=== PATIENT | male | born 1970 | race Caucasian/White ===

== ENCOUNTER 2025-02-28 19:41 | Emergency (ER) | payer OTHER, SELFPAY ==
[2025-02-28] VITALS (22 sets, daily range): BP systolic 108–169; BP diastolic 60–98; PULSE 75–150; RESP 13–28; TEMP 36.9; O2SAT 92–98; BMI 27.2
--- NOTE | 2025-02-28 19:51 | DI.RAD.S_ITS ---
PROCEDURE: XR CHEST 1V INDICATIONS: Chest Pain TECHNIQUE: One view of the chest was acquired. COMPARISON: None. FINDINGS: Surgical changes and devices: Median sternotomy wires and surgical clips are seen. Lungs and pleura: There is small to moderate left pleural effusion and left basilar small infiltrate/atelectasis. No pneumothorax. Pulmonary vascular congestion is seen. No definite focal infiltrate. Mediastinum: Mediastinal contours appear normal. Heart size is enlarged. Bones and chest wall: No suspicious bony lesions. Overlying soft tissues appear unremarkable. IMPRESSION: Finding is concerning for CHF. Small to moderate left pleural effusion with left basilar atelectasis/small infiltrates. No pneumothorax. Dictated by: Parker De Luna M.D. on 02/28/2025 at 20:27 Approved by: Parker De Luna M.D. on 02/28/2025 at 20:28
--- NOTE | 2025-02-28 19:54 | EKG_ITS ---
[id number] [address] Test Date: 2025-02-28 Pat Name: Murray Tinoco Department: Room: Gender: Male Vp [employer]ent Management: : 1970 Requested By: Order Number: [id number] Reading MD: Charlie Ward Measurements Intervals [place] Rate: 147 P: [place]: QRS: -40 QRSD: 176 T: 39 QT: 316 QTc: 494 Interpretive Statements Critical Test Result: High HR Atrial fibrillation with rapid ventricular response with premature ventricular or aberrantly conducted complexes Left axis deviation Right bundle branch block Electronically Signed On 03-01-2025 7:24:43 PDT by Charlie Ward
[2025-02-28 20:10] LABS: Add Manual Diff / Slide Review NO; Hematocrit 45.7 % (41-53); Hemoglobin 15.8 g/dL (13.5-17.5); Lymphocytes Absolute Auto 2100 /uL (1100-4500); Mean Corpuscular HGB Conc 34.5 % (30-36); Mean Corpuscular Hemoglobin 34.7 PG (26-34); Mean Corpuscular Volume 100.7 fL (80-100); Platelet Count 194 X10^3/uL (150-400)
[2025-02-28 20:11] LABS: INR 1.1 (0.9-1.3); Prothrombin Time 12.3 SECONDS (9.4-12.5)
[2025-02-28 20:14] LABS: PTT Partial Thromboplastin Tim 41 SECONDS (25.1-36.5)
[2025-02-28 20:17] LABS: Alanine Aminotransferase 56 IU/L (<50); Albumin 5.0 g/dL (3.5-5.0); Albumin Globulin Ratio 1.6 (1.0-2.8); Alkaline Phosphatase 76 U/L (38-126); Blood Urea Nitrogen 7 mg/dL (9-20); Calcium 9.8 mg/dL (8.4-10.2); Carbon Dioxide 21 mmol/L (22-32); Chloride 102 mmol/L (98-107); Creatine Kinase 96 U/L (55-170); Estimated Glomerular Filt Rate > 60 mL/min (>60); Globulin 3.1 g/dL (1.7-4.1); Glucose 116 mg/dL (70-99); HEMOLYSIS 15 (0-50); Lipase 55 U/L (23-300); Magnesium 1.8 mg/dL (1.6-2.3); Potassium 3.8 mmol/L (3.4-5.1); Sodium 138 mmol/L (137-145); Total Protein 8.1 g/dL (6.3-8.2)
[2025-02-28 20:28] LABS: NT-proBNP (BNP-Adult 18+) 545 pg/mL (<125); Troponin I 0.033 ng/mL (0.01-0.034)
--- NOTE | 2025-02-28 20:30 | ED_ITS ---
HPI - Arrhythmia/Palpitations General Chief Complaint: Arrhythmia/Palpitations Stated Complaint: cardiac arrhythmia and SOB Time Seen by Provider: 02/28/25 20:30 Source: patient Mode of arrival: Ambulatory History of Present Illness HPI narrative: 54-year-old gentleman born with tetralogy of Fallot has had subsequent multiple cardiac surgeries all when he was younger his most recent cardiac surgery and catheterization was in the mid 80s, he is on amlodipine for hypertension. Over the last 4-5 days he has been having increasing fatigue increasing lower extremity edema exertional dyspnea. Today around 10 30 he developed increasing shortness a breath, noted that his heart was rapid and irregular and developing some mild chest pain. He and his live on [address] they came in for further evaluation. No recent fever cough or chills. No abdominal pain, nausea vomiting or diarrhea. Related Data Allergies Allergy/AdvReac Type Severity Reaction Status Date / Time No Known Drug Allergies Allergy Verified 02/28/25 19:47 Review of Systems Review of Systems Narrative: Pertinent positive and negative findings as per HPI Patient History Medical History (Updated 02/28/25 @ 23:25 by Anjelica Escalona MD) Hypertension Tetralogy of Fallot Social History Smoking Status: Unknown if ever smoked Smoking Status: Unknown if ever smoked Exam Initial Vital Signs Initial Vital Signs: Vital Signs Temperature 98.5 F 02/28/25 19:47 Pulse Rate 75 02/28/25 19:47 Respiratory Rate 14 02/28/25 19:47 Blood Pressure 142/88 H 02/28/25 19:47 Pulse Oximetry 95 02/28/25 19:47 Oxygen Delivery Method Room Air 02/28/25 19:47 General: Somewhat fatigued with deep circles under his eyes somewhat pale. Able to speak in complete sentences HEENT: Moist mucous membranes, normal sclera with reactive pupils, Neck: No JVD, supple Respiratory: Lungs are clear to auscultation, no wheezing no rales no rhonchi. Full and symmetrical air movement Cardiac: Tachycardic and irregular, 3/6 systolic murmur Abdomen: Soft, nontender, no rebound or guarding, no flank pain Skin: Slightly pale, no rashes Neurologic: Grossly neurologically intact with no obvious asymmetries or abnormalities Extremities: No trauma, 1+ bilateral lower extremity edema Psych: Cooperative, appropriate insight and affect Course Orders Ordered: Discontinued Medications Aspirin (Aspirin 81 Mg Chew Tab) 324 mg PO NOW ONE Stop: 02/28/25 19:52 Last Admin: 02/28/25 20:32 Dose: 324 mg Documented By: ADEOLA Diltiazem HCl (Diltiazem 25 Mg/5 Ml Sdv) 10 mg IV NOW ONE Stop: 02/28/25 20:52 Last Admin: 02/28/25 21:02 Dose: 10 mg Documented By: ADEOLA Furosemide (Furosemide 40 Mg/4 Ml Vial) 20 mg IV NOW ONE Stop: 02/28/25 23:27 Last Admin: 02/28/25 23:34 Dose: 20 mg Documented By: MINDA Diltiazem HCl 125 mg/ Sodium (Chloride) 125 mls @ 5 mls/hr IV TITRATE [facility]; Protocol Last Titration: 03/01/25 01:42 Dose: Infused Documented By: Titration: 02/28/25 23:39 Dose: 20 mg/hr, 20 mls/hr Documented By: Titration: 02/28/25 22:03 Dose: 15 mg/hr, 15 mls/hr Documented By: Titration: 02/28/25 21:44 Dose: 10 mg/hr, 10 mls/hr Documented By: Admin: 02/28/25 21:13 Dose: 5 mg/hr, 5 mls/hr Documented By: ADEOLA Vital Signs Vital signs: Vital Signs - 8 hr 02/28/25 19:47 02/28/25 20:43 02/28/25 20:49 Temperature 98.5 F Pulse Rate 75 144 H Respiratory Rate 14 15 Blood Pressure 142/88 H 156/98 H Pulse Oximetry 95 98 Oxygen Delivery Method Room Air 02/28/25 20:49 02/28/25 21:00 02/28/25 21:00 Temperature Pulse Rate 145 H Respiratory Rate 17 Blood Pressure 165/87 H 122/80 Pulse Oximetry 96 Oxygen Delivery Method 02/28/25 21:02 02/28/25 21:10 02/28/25 21:10 Temperature Pulse Rate 150 H 137 H Respiratory Rate 15 Blood Pressure 122/80 138/69 Pulse Oximetry 93 Oxygen Delivery Method 02/28/25 21:13 02/28/25 21:15 02/28/25 21:15 Temperature Pulse Rate 135 H 132 H Respiratory Rate 22 Blood Pressure 138/69 119/69 Pulse Oximetry 96 Oxygen Delivery Method 02/28/25 21:20 02/28/25 21:20 02/28/25 21:30 Temperature Pulse Rate 137 H 115 H Respiratory Rate 13 Blood Pressure 147/79 H Pulse Oximetry 94 96 Oxygen Delivery Method 02/28/25 21:30 02/28/25 21:40 02/28/25 21:40 Temperature Pulse Rate 134 H Respiratory Rate 21 Blood Pressure 149/69 H 108/60 Pulse Oximetry 95 Oxygen Delivery Method 02/28/25 21:50 02/28/25 21:50 02/28/25 22:00 Temperature Pulse Rate 142 H 133 H Respiratory Rate 28 H 26 H Blood Pressure 117/69 Pulse Oximetry 95 95 Oxygen Delivery Method 02/28/25 22:01 02/28/25 22:01 02/28/25 22:10 Temperature Pulse Rate 137 H 135 H Respiratory Rate 21 25 H Blood Pressure 146/75 H Pulse Oximetry 94 92 Oxygen Delivery Method 02/28/25 22:10 02/28/25 22:20 02/28/25 22:20 Temperature Pulse Rate 127 H Respiratory Rate 21 Blood Pressure 124/80 115/77 Pulse Oximetry 96 Oxygen Delivery Method 02/28/25 22:30 02/28/25 22:38 02/28/25 22:38 Temperature Pulse Rate 144 H 133 H Respiratory Rate 15 22 Blood Pressure 152/81 H Pulse Oximetry 93 96 Oxygen Delivery Method 02/28/25 22:45 02/28/25 22:45 02/28/25 23:00 Temperature Pulse Rate 123 H Respiratory Rate 23 Blood Pressure 149/66 H 124/68 Pulse Oximetry 94 Oxygen Delivery Method 02/28/25 23:00 Temperature Pulse Rate 121 H Respiratory Rate 24 Blood Pressure Pulse Oximetry 94 Oxygen Delivery Method MDM - Arrhythmia/Palpitations Lab Data 02/28/25 19:58 02/28/25 19:58 Labs: Lab Results 02/28/25 02/28/25 Range/Units 19:58 22:00 WBC 7.4 (4.5-11.0) X10^3/uL RBC 4.54 (4.5-5.9) X10^6/uL Hgb 15.8 (13.5-17.5) g/dL Hct 45.7 (41-53) % MCV 100.7 H (80-100) fL MCH 34.7 H (26-34) PG MCHC 34.5 (30-36) % RDW 13.3 (11.6-14.8) % Plt Count 194 (150-400) X10^3/uL Neut % (Auto) 54.2 (50-75) % Lymph % (Auto) 27.9 (25-40) % [place] % (Auto) 14.6 H (3-14) % Eos % (Auto) 2.4 (2-4) % Baso % (Auto) 0.9 (0-2) % Neut # (Auto) 4000 (9866-7160) /uL Lymph # (Auto) 2100 (1179-7048) /uL [place] # (Auto) 1100 H (0-900) /uL Eos # (Auto) 200 (0-450) /uL Baso # (Auto) 100 (0-100) /uL PT 12.3 (9.4-12.5) SECONDS INR 1.1 (0.9-1.3) APTT 41 H (25.1-36.5) SECONDS D-Dimer 1423 H (<500) ng/ml Sodium 138 (137-145) mmol/L Potassium 3.8 (3.4-5.1) mmol/L Chloride 102 (98-107) mmol/L Carbon Dioxide 21 L (22-32) mmol/L BUN 7 L (9-20) mg/dL Creatinine 0.91 (0.66-1.25) mg/dL Estimated GFR > 60 (>60) mL/min BUN/Creatinine Ratio 7.7 (6-22) Glucose 116 H (70-99) mg/dL Calcium 9.8 (8.4-10.2) mg/dL Magnesium 1.8 (1.6-2.3) mg/dL Total Bilirubin 1.4 H (0.2-1.3) mg/dL AST 68 H (17-59) IU/L ALT 56 H (<50) IU/L Alkaline Phosphatase 76 (38-126) U/L Total Creatine Kinase 96 (55-170) U/L Troponin I 0.033 0.038 H (0.01-0.034) ng/mL NT-Pro-B Natriuret Pep 545 H (<125) pg/mL Total Protein 8.1 (6.3-8.2) g/dL Albumin 5.0 (3.5-5.0) g/dL Globulin 3.1 (1.7-4.1) g/dL Albumin/Globulin Ratio 1.6 (1.0-2.8) Lipase 55 (23-300) U/L Imaging Data CT scan - chest: Radiologist's Impresson: PROCEDURE: CT ANGIO CHEST PE PROTOCOL INDICATIONS: Elevated D-dimer, new onset AFib, multiple cardiac surgeries TECHNIQUE: After the administration of intravenous contrast, 2 mm thick sections acquired from the pulmonary apices to the posterior costophrenic angles. 3-dimensional maximum intensity projection (MIP) coronal and sagittal reformats were then acquired through the thorax. For radiation dose reduction, the following was used: automated exposure control, adjustment of mA and/or kV according to patient size. COMPARISON: [facility], CR, XR CHEST 1V, 02/28/2025, 20:00. FINDINGS: Image quality: Diagnostic. Pulmonary arteries: Pulmonary arteries are normal in size, and demonstrate no intraluminal filling defects to suggest central pulmonary embolism. Lower Neck: No enlarged lymph nodes. Thyroid: No thyroid nodules which require sonographic follow up, per consensus guidelines. Axillae: No enlarged lymph nodes. Chest Wall: Median sternotomy wires and surgical clips are seen. Bones: No aggressive appearing bony lesions. Lungs and Pleura: Small left greater than right bilateral pleural effusion with masslike consolidation in posterior aspect of left lower lobe extending to left hilar region. Small infiltrate/atelectasis in medial aspect of left lingular segment is seen. Dependent atelectasis in posterior aspect of right lower lobe is seen. No pneumothorax. No suspicious pulmonary nodule is seen in bilateral aerated lung holloway. Heart: Heart size is enlarged. No pericardial effusion. Thoracic Vessels: Ascending thoracic aortic aneurysm measures up to 4.8 cm in largest AP diameter is seen. No aortic dissection. Mediastinum and Dolores: No enlarged lymph nodes. Esophagus: No wall thickening. No significant hiatal hernia. Upper Abdomen: Visualized upper abdomen solid organs and bowel loops appear normal. IMPRESSION: 1. No pulmonary embolus. 2. Ascending thoracic aortic aneurysm measures up to 4.8 cm in largest AP diameter. No gross dissection. 3. Cardiomegaly, no pericardial effusion. No mediastinal or hilar lymphadenopathy. 4. Small left greater than right bilateral pleural effusion with infiltrate/atelectasis in posterior aspect of bilateral lung holloway more notably in left lingular segment and left lower lobe as above. Follow-up until resolution is recommended to rule out underlying neoplastic process. No pneumothorax. Dictated by: Parker De Luna M.D. on 02/28/2025 at 22:48 MDM Narrative Medical decision making narrative: CC: Palpitations and edema Complicating co-morbidities: Born with tetralogy of Fallot, multiple pediatric cardiac surgeries. Hypertension, no prior history of atrial fibrillation Data collected from: patient, . is a senior product development manager Social determinants of health that may influence the patients condition: Couple lives on [address] Medical records reviewed: No records are immediately available Differential considered: New onset atrial fibrillation, acute coronary syndrome, pulmonary embolism, infection Exam documented above, pertinent findings include: Pale, appears mildly volume overloaded, no obvious infectious concerns on immediate exam. He is tachycardic and heart rate is irregular with slight murmur appreciated Lab Test results independently reviewed as above. Pertinent findings: CBC is unremarkable D-dimer is elevated at 1423 Chemistries are notable for normal renal function, slightly elevated bili AST ALT Initial troponin is 0.033 repeat is 0.038. Normal is less than 0.035 BNP is minimally elevated at 545 Independently reviewed EKG: Atrial fibrillation at a rate of 147 no acute ischemic changes Discussion care with Lisandro Andino on-call physician who is able to look at some past medical records did find an EKG showing his right bundle branch block back in 2020 Imaging studies independently reviewed: Chest x-ray suggests congestive heart failure with left pleural effusion CT scan of the chest done for elevated D-dimer shows no pulmonary emboli, ascending thoracic aortic aneurysm at 4.8 cm without dissection. (thoracic abnormality has been appreciated in prior records) mall left greater than right bilateral pleural effusion with masslike consolidation in posterior aspect of left lower lobe extending to left hilar region. Small infiltrate/atelectasis in medial aspect of left lingular segment is seen. Dependent atelectasis in posterior aspect of right lower lobe is seen. No pneumothorax. Consultations: Discussed withLisandro Andino on-call physician. Some access to records which are reviewed. He is able to arrange for hospital bed at [address] with the accepting [facility]. Treatments: Patient is started on diltiazem drip after diltiazem bolus goal is heart rate around 100. Discussion: 54-year-old gentleman with what appears to be new onset atrial fibrillation with congestive heart failure doubt acute coronary syndrome, pulmonary abnormalities with masslike consolidation in the posterior aspect of the left lower lobe extending to the left hilar region that we will need further follow up. There was no evidence of pulmonary embolism. Currently on diltiazem drip, in consultation with warehouse selector further anticoagulation is not indicated. All findings reviewed with the patient his they understand need for transfer. Awaiting bed availability [address] is updated on CT findings and Lasix condition. There has been a change in plans patient is now going to go to [facility] rather than [address] [place] [address] an admitting physician will be Dr. Finley Critical Care Time Critical Care Time Critical Care Time: Yes Total Critical Care Time: 33 Attestation: Critical care time is separate from other billable procedures. There is a high probability of a significant, sudden or life-threatening deterioration that requires my full and direct attention, intervention and personal management. This critical care time includes consultation with family and other consulting doctors, review of records, and interpretation of data from labs, EKGs and imaging as well as managements of new onset atrial fibrillation with new onset congestive heart failure in setting of complex structural heart disease, discussion with consultants for transfer and management of atrial fibrillation with IV rate control medications as well as IV Lasix Discharge Plan Departure Patient Disposition: [facility] Clinical Impression: Atrial fibrillation with rapid ventricular response, New onset of congestive heart failure, Consolidation of left lower lobe of lung
[2025-02-28] MEDS: ASPIRIN 81 MG CHEW TAB 324 MG PO (20:32)
--- NOTE | 2025-02-28 22:04 | PC.NURSE ---
Titrated diltiazem up to 15mg/hr from 10mg/hr after 15 min. Provider aware and agrees with decision
--- NOTE | 2025-02-28 22:17 | DI.CT.S_ITS ---
PROCEDURE: CT ANGIO CHEST PE PROTOCOL INDICATIONS: Elevated D-dimer, new onset AFib, multiple cardiac surgeries TECHNIQUE: After the administration of intravenous contrast, 2 mm thick sections acquired from the pulmonary apices to the posterior costophrenic angles. 3-dimensional maximum intensity projection (MIP) coronal and sagittal reformats were then acquired through the thorax. For radiation dose reduction, the following was used: automated exposure control, adjustment of mA and/or kV according to patient size. COMPARISON: [facility], CR, XR CHEST 1V, 02/28/2025, 20:00. FINDINGS: Image quality: Diagnostic. Pulmonary arteries: Pulmonary arteries are normal in size, and demonstrate no intraluminal filling defects to suggest central pulmonary embolism. Lower Neck: No enlarged lymph nodes. Thyroid: No thyroid nodules which require sonographic follow up, per consensus guidelines. Axillae: No enlarged lymph nodes. Chest Wall: Median sternotomy wires and surgical clips are seen. Bones: No aggressive appearing bony lesions. Lungs and Pleura: Small left greater than right bilateral pleural effusion with masslike consolidation in posterior aspect of left lower lobe extending to left hilar region. Small infiltrate/atelectasis in medial aspect of left lingular segment is seen. Dependent atelectasis in posterior aspect of right lower lobe is seen. No pneumothorax. No suspicious pulmonary nodule is seen in bilateral aerated lung holloway. Heart: Heart size is enlarged. No pericardial effusion. Thoracic Vessels: Ascending thoracic aortic aneurysm measures up to 4.8 cm in largest AP diameter is seen. No aortic dissection. Mediastinum and Dolores: No enlarged lymph nodes. Esophagus: No wall thickening. No significant hiatal hernia. Upper Abdomen: Visualized upper abdomen solid organs and bowel loops appear normal. IMPRESSION: 1. No pulmonary embolus. 2. Ascending thoracic aortic aneurysm measures up to 4.8 cm in largest AP diameter. No gross dissection. 3. Cardiomegaly, no pericardial effusion. No mediastinal or hilar lymphadenopathy. 4. Small left greater than right bilateral pleural effusion with infiltrate/atelectasis in posterior aspect of bilateral lung holloway more notably in left lingular segment and left lower lobe as above. Follow-up until resolution is recommended to rule out underlying neoplastic process. No pneumothorax. Dictated by: Parker De Luna M.D. on 02/28/2025 at 22:48 Approved by: Parker De Luna M.D. on 02/28/2025 at 22:51
--- NOTE | 2025-02-28 22:19 | PC.NURSE ---
Provider updated on elevated D-Dimer
[2025-02-28 22:29] LABS: Troponin I 0.038 ng/mL (0.01-0.034)
--- NOTE | 2025-02-28 22:40 | PC.NURSE ---
Pt back from CT. Tolerated CT and contrast well
[2025-02-28] MEDS: FUROSEMIDE 40 MG/4 ML VIAL 20 MG IV (23:34)
[2025-03-01] VITALS (7 sets, daily range): BP systolic 115–169; BP diastolic 67–77; PULSE 101–124; RESP 0–27; O2SAT 90–96
--- NOTE | 2025-03-01 00:15 | PC.NURSE ---
Pt starting to feel better, urinating at bedside with urinal. Denies needing anything at this time
--- NOTE | 2025-03-01 00:42 | PC.NURSE ---
Family updated about transfer time and RM number
--- NOTE | 2025-03-01 01:30 | PC.NURSE ---
Pt transferred with [facility] ambulance crew with diltiazem running at 20mg/hr
== END 2025-03-01 01:45 | disposition short-term general hospital (02) ==
PROVIDERS: Emergency Provider Emergency Medicine
DX: I48.20 Chronic atrial fibrillation, unspecified (principal); Z79.01 Long term (current) use of anticoagulants; I50.9 Heart failure, unspecified; J18.1 Lobar pneumonia, unspecified organism; R07.9 Chest pain, unspecified; R60.0 Localized edema
CPT/HCPCS: 36415; 71045; 71275; 80053; 82550; 83690; 83735; 83880; 84484; 85025; 85379; 85610; 85730; 93005; 96365; 96366; 96375; 99284; 99291; J1938; Q9967